=== PATIENT | male | born 1955 | race Caucasian/White ===

== ENCOUNTER → 2020-03-26 | Outpatient (CLI) | payer OTHER ==
[~2020-03-26] MED LIST: ASA81BEC PO; BENAZEPRIL HCL20 MG PO; BYSTOLIC10 MG PO; CHILDREN'S ZYRT10 M1 PO; CLOMIPHENE CITR50 MG PO; DERMACINRX5000 UNIT PO; FISH OIL 1,001000 M3 PO; GLIPIZIDE 10 MG10 MG PO; IMDUR 30 MG TAB30 M1 PO; METFORMIN HCL500 M3 PO; THERA M PLUS T1 EAC2 PO; ZOCOR 10 MG TAB10 M1 PO
== END ==
LOC: SJCVC 10:38
PROVIDERS: ATTEND Internal Medicine
DX: R06.09 Other forms of dyspnea (principal); I10 Essential (primary) hypertension; E11.9 Type 2 diabetes mellitus without complications; E78.2 Mixed hyperlipidemia; Z79.899 Other long term (current) drug therapy; Z87.891 Personal history of nicotine dependence; Z79.82 Long term (current) use of aspirin; Z79.84 Long term (current) use of oral hypoglycemic drugs

== ENCOUNTER → 2020-04-03 | Outpatient (CLI) | payer OTHER | LOC: SJCVCIMAG 08:54 | PROVIDERS: ATTEND Internal Medicine | DX: R94.31 Abnormal electrocardiogram [ECG] [EKG] (principal); I08.8 Other rheumatic multiple valve diseases; R06.02 Shortness of breath; E78.5 Hyperlipidemia, unspecified; E11.9 Type 2 diabetes mellitus without complications; R07.9 Chest pain, unspecified; Z87.891 Personal history of nicotine dependence; Z79.82 Long term (current) use of aspirin; Z79.84 Long term (current) use of oral hypoglycemic drugs; Z79.899 Other long term (current) drug therapy ==

== ENCOUNTER → 2020-04-18 | Outpatient (CLI) | payer OTHER | LOC: SJCVC 14:45 | PROVIDERS: ATTEND Internal Medicine | DX: R06.09 Other forms of dyspnea (principal); I10 Essential (primary) hypertension; E11.9 Type 2 diabetes mellitus without complications; Z79.899 Other long term (current) drug therapy; Z87.891 Personal history of nicotine dependence ==

== ENCOUNTER → 2020-05-01 | Outpatient (CLI) | payer OTHER ==
[~2020-05-01] VITALS: Ht 180.3 cm; Wt 112.9 kg
[2020-05-01 10:02] VITALS: BP 136/68
[2020-05-01 10:11] LABS: HEMATOCRIT 44.5 % (42.0-52.0); HEMOGLOBIN 15.3 gm/dL (14.0-18.0); MCH 29.5 pg (26.0-34.0); MCHC 34.3 g/dL (28.0-37.0); MCV 86.1 fL (80.0-100.0); RBC 5.16 mil/uL (4.50-6.00); RDW 15.7 % (10.5-14.5); WBC 7.5 thou/uL (4.0-11.0)
[2020-05-01 10:23] LABS: CALCIUM 9.1 mg/dL (8.5-10.1); CREATININE 1.1 mg/dL (0.7-1.3); POTASSIUM 4.1 mmol/L (3.5-5.1)
--- NOTE | 2020-05-01 16:04 | EKG ---
[facility] [place] [address] ELECTROCARDIOGRAM REPORT Name: RIVAS GOFFHUMPHREY cSott Room #: REG [facility]#: [id number] Admission: 05/01/20 Attend Phys: Roberto Styles Discharge: Date of : 53 Report #: [id number] THIS REPORT FOR: cc: Earnest Boo MD, Troy A. MD Couchonnal, Luis F. MD ~ THIS REPORT FOR: //name// [facility] Test Date: 2020-05-01 Test Time: 10:01:03 Pat Name: ANDRADE GOFF Department: Room: Gender: Gore Maker: Jordi PETTIT : 1955 Requested By: Roberto Styles Order Number: [id number] MD: Elroy He Measurements Intervals [place] Rate: 65 P: 25 CO: 188 QRS: -26 QRSD: 91 T: 15 QT: 425 QTc: 442 Interpretive Statements Sinus rhythm Inferior infarct, old No previous ECG available for comparison Electronically Signed On 05-01-2020 16:03:19 CDT by Elroy He [email or web address] <ELECTRONICALLY SIGNED> By: Elroy He MD 05/01/20 1603 100 100 Elroy He MD /[facility]
--- NOTE | 2020-05-04 12:23 | CATHLAB ---
[facility] [place] [address] INVASIVE PROCEDURE REPORT Name: ANDRADE GOFF [place] Room #: REG MERE Joshua#: [id number] Admission: 05/01/20 Attend Phys: Roberto Styles Discharge: Date of : 53 Report #: [id number] THIS REPORT FOR: cc: Earnest Boo MD, Troy A. MD Lammoglia, Francisco J. MD ~ APPROVED REPORT Study performed: 05/01/2020 10:52:18 Patient Details Patient Status: Out-Patient Room #: The patient is a 64 year-old male Event Personnel Roberto Styles Latin American Studies Professor, Nat Villegas RN RN, Inocencio Camp RN RN, Renetta Pak RTR, Itz Cline Sherra RTR Monitor Procedures Performed Art Access - R femoral artery* Left Heart Cath w/or w/o Coronaries [id number] [facility] FFR [id number] FFR 59876 Initial Mod Sed Same Phys/QHP Gr5y 078012 54410 Mod Sed Same Phys/QHP Ea 962178 Hemostasis w/ Mynx, supervision of conscious sedation Indication Chest pain Procedure Narrative The Right Groin^ was infiltrated with 1% Lidocaine subcutaneous anesthesia. A PINNACLE 6FR Sheath #[id number] sheath was inserted into the RFA^. Coronary angiography was performed using coronary diagnostic catheters. The right coronary system was accessed and visualized with a JR4 catheter. The left coronary system was accessed and visualized with a JL4 catheter. The left ventricle was accessed and visualized with a PIGTAIL catheter. Closure device was deployed with a 6 Fr MYNXGRIP 6/7F #[id number]. The patient tolerated the procedure well and there were no complications associated with the procedure. There was no hematoma. Intraoperative Conscious Sedation Sedation start time: 1111 Case end Time: 1153 Versed 3 mg [facility] [place] [address] INVASIVE PROCEDURE REPORT Name: ANDRADE GOFF Room #: REG ANABEL Lewis#: [id number] Admission: 05/01/20 Attend Phys: Roberto Mackey Discharge: Date of : 53 Report #: [id number] Fluoro Time: 4.24 minutes Dose: DAP 4698.20 cGycm2 649 mGy Contrast Type and Amount: Omnipaque 60 ml Coronary Angiography The patient's coronary anatomy is right dominant. Diagnostic Cath Left Main Normal origin large caliber with immediately bifurcates in the left and descending left circumflex. No high-grade lesions are noted although evidence of epicardial calcifications are present LAD Moderate caliber type III vessel which courses in the anterior interventricular sulcus giving rise to septal and diagonal branches and terminating in the posterior aspect of the left ventricle with a small bifurcating branch. In its proximal portion there is heavy epicardial calcifications noted. There is also irregularities with focal regions that appear to be variable in tightness but appear to be 70% or less. The vessel then continues gives rise to diagonal branches a small caliber vessel which has a high-grade lesion in its midportion and then continues as a small caliber bifurcating vessel on the anterolateral wall. The mid LAD portion has a proximal segment that is eccentric and narrowing is a focal region there appears to be approximately 70%. The vessel reconstitutes towards the apex with luminal irregularities noted of less than 50% Diagonal 1 Small caliber vessel with high-grade lesion in its mid course and then terminates as a bifurcating branch which appears to be less than 1 mm in diameter proximally and less than half a millimeter in the terminal bifurcating branch Circumflex Moderate to large caliber vessel which gives rise to an early diagonal branch which has a high-grade lesion proximally. The vessel then continues on and on the lateral aspect of the heart with luminal irregularities. The second and third marginal branches arise as the circumflex proper proceeds posteriorly giving rise to several posterior wall branches which are tortuous in nature small in size and no high-grade lesion OM1 Small caliber vessel with high-grade proximal lesion but then reconstitutes in its middle third and distal third as a course along the anterolateral wall. The origin of this is proximal enough that may be a ramus as opposed to the first marginal but the area of distribution is similar. OM2 Moderate caliber vessel the long segment of 50 to 60% stenosis in its proximal third and then reconstitutes and continues on the lateral aspect of the ventricle without high-grade lesions Right Coronary Small caliber vessel which is proximally occluded. No [address] [address] INVASIVE PROCEDURE REPORT Name: ANDRADE GOFF Room #: REG Joshua#: [id number] Admission: 05/01/20 Attend Phys: Roberto Mackey Discharge: Date of : 53 Report #: [id number] antegrade flow is noted beyond this occlusion. R PDA Appears to fill via left to right collaterals and its a string-like vessel. Left Ventriculography Left Ventriculography was not performed. IVUS A JL4 Medtronic Guide Catheter was used to engage the Left coronary ostium. A FFR wire was used. Hemodynamics The aortic pressure is 143/61 mmHg with a mean of 97 mmHg. The left ventricular pressure is 133/4 mmHg with a mean of mmHg. The left ventricular end diastolic pressure is 14 mmHg. PCI Technique Lesion A LAUNCHER 6FR JL4 #[id number] Guide Catheter was used to engage the ostium. A Aeris Pressure Wire 175 cm [id number] Interventional Guidewire was used to cross the lesion. COMMENTS IFR PRE MEASUREMENT IN THE LAD WAS 1.0 AND THE FFR MEASUREMENT WAS 0.74 PCI Technique Lesion The lesion stenosis prior to intervention was % with VAHID JL4 Medtronic flow. A Left coronary Guide Catheter was used to engage the ostium. A FFR wire Interventional Guidewire was used to cross the lesion. Conclusion 1. Coronary artery disease significant three-vessel with proximal left anterior descending and proximal OM1 and OM 2 lesions and a totally occluded proximal RCA 2. Abnormal hemodynamics with the left ventricular end-diastolic pressures 3. Abnormal IFR with proximal and proximal mid LAD readings of 0.74 Recommendations Cardiac Risk Reduction Program CABG <ELECTRONICALLY SIGNED> By: Roberto Styles MD 05/04/20 1222 21 21 Roberto Styles MD /INF
== END | disposition home or self-care (01) ==
LOC: CATH 09:29
PROVIDERS: ATTEND Internal Medicine
DX: R07.9 Chest pain, unspecified (principal); I25.10 Atherosclerotic heart disease of native coronary artery without angina pectoris; R06.00 Dyspnea, unspecified; I10 Essential (primary) hypertension; E11.9 Type 2 diabetes mellitus without complications; Z98.890 Other specified postprocedural states; Z79.899 Other long term (current) drug therapy; Z79.82 Long term (current) use of aspirin

== ENCOUNTER → 2020-07-09 | Outpatient (CLI) | payer OTHER | LOC: SJCVC 10:54 | PROVIDERS: ATTEND Internal Medicine | DX: Z51.81 Encounter for therapeutic drug level monitoring (principal); E78.5 Hyperlipidemia, unspecified; I10 Essential (primary) hypertension; Z79.01 Long term (current) use of anticoagulants; Z79.899 Other long term (current) drug therapy ==

== ENCOUNTER → 2020-09-27 | Outpatient (CLI) | payer OTHER | LOC: SJCVC 09:42 | PROVIDERS: ATTEND Internal Medicine | DX: R00.2 Palpitations (principal); I48.0 Paroxysmal atrial fibrillation; I25.10 Atherosclerotic heart disease of native coronary artery without angina pectoris; E11.9 Type 2 diabetes mellitus without complications; I10 Essential (primary) hypertension; E78.2 Mixed hyperlipidemia; Z95.1 Presence of aortocoronary bypass graft; Z79.82 Long term (current) use of aspirin; Z79.899 Other long term (current) drug therapy; Z87.891 Personal history of nicotine dependence ==

== ENCOUNTER → 2020-11-01 | Outpatient (CLI) | payer OTHER | LOC: SJCVC 10:20 | PROVIDERS: ATTEND Internal Medicine | DX: I25.10 Atherosclerotic heart disease of native coronary artery without angina pectoris (principal); R00.2 Palpitations; I48.0 Paroxysmal atrial fibrillation; E11.9 Type 2 diabetes mellitus without complications; I10 Essential (primary) hypertension; E78.2 Mixed hyperlipidemia; Z79.84 Long term (current) use of oral hypoglycemic drugs; Z79.82 Long term (current) use of aspirin; Z79.899 Other long term (current) drug therapy; Z82.49 Family history of ischemic heart disease and other diseases of the circulatory system; Z87.891 Personal history of nicotine dependence ==

== ENCOUNTER → 2021-11-12 | Outpatient (CLI) | payer OTHER | LOC: SJCVC 13:05 | PROVIDERS: ATTEND Internal Medicine | DX: R94.31 Abnormal electrocardiogram [ECG] [EKG] (principal); I49.8 Other specified cardiac arrhythmias; R00.2 Palpitations; I25.10 Atherosclerotic heart disease of native coronary artery without angina pectoris; I10 Essential (primary) hypertension; E11.9 Type 2 diabetes mellitus without complications; E78.5 Hyperlipidemia, unspecified; Z95.1 Presence of aortocoronary bypass graft; Z79.84 Long term (current) use of oral hypoglycemic drugs; Z79.82 Long term (current) use of aspirin; Z79.899 Other long term (current) drug therapy; Z87.891 Personal history of nicotine dependence ==